=== PATIENT | male | born 1995 | race Two or more races ===

== ENCOUNTER 2019-12-26 02:01 | Emergency (ER) | payer MEDICAID ==
[~2019-12-26] VITALS: Ht 175.3 cm; Wt 76.8 kg
[2019-12-26 02:09] VITALS: BP 116/68
== END 2019-12-26 03:05 | disposition home or self-care (01) ==
LOC: EDBD 02:01 → ER 02:01
DX: J02.9 Acute pharyngitis, unspecified (principal)
CPT/HCPCS: 99282